=== PATIENT | female | born 1985 | race Caucasian/White ===

== ENCOUNTER 2020-03-20 00:32 | Emergency (ER) | payer SELFPAY ==
[~2020-03-20] VITALS: Ht 157.5 cm; Wt 87.5 kg
[2020-03-20 00:38] VITALS: Ht 157.5 cm; Wt 87.5 kg
[2020-03-20 05:09] VITALS: BP 159/108
== END 2020-03-20 05:09 | disposition home or self-care (01) ==
LOC: ED 00:32
DX: F41.9 Anxiety disorder, unspecified (principal); F32.9 Major depressive disorder, single episode, unspecified; I10 Essential (primary) hypertension; Z98.890 Other specified postprocedural states